=== PATIENT | female | born 1975 | race Caucasian/White ===

== ENCOUNTER → 2021-07-10 15:13 | Outpatient (CLI) | payer OTHER, SELFPAY ==
--- NOTE | ~2021-07-10 | US_ITS ---
EXAMINATION: US transvaginal DATE: 07/10/2021 15:34 INDICATION: Pelvic pain Comparison:Ultrasound dated 05/16/2012 TECHNIQUE: Multiple transabdominal and endovaginal sonographic images of the pelvis performed. FINDINGS: The uterus measures 9 x 4.4 x 5.1 cm. The endometrial complex measures 8 mm. The right ovary measures 2 x 2 x 1.5 cm and the left ovary measures 3.4 x 2.3 x 2.8 cm. There are sm all follicles in each ovary. Normal doppler signal in both ovaries. There is no free fluid in the pelvis. There are no abnormal masses seen on either side. IMPRESSION: 1. Unremarkable pelvic ultrasound. Reviewed, dictated and finalized at location A.
== END ==
PROVIDERS: Visit Provider Nurse Practitioner
DX: R10.2 Pelvic and perineal pain (principal)
CPT/HCPCS: 76830

== ENCOUNTER 2022-04-13 01:59 | Day surgery (SDC) | payer OTHER, SELFPAY ==
[2022-04-07 15:27] VITALS: BMI 34.6
--- NOTE | 2022-04-07 15:27 | PC.NURSE ---
Report to the Outpatient Waiting Room, entrance under the green pavilion located off [facility], at time _0800_ on date _[id number]_. OR Time: _1000_. - You and your visitor will be asked a series of questions to screen for COVID 19 for your protection. - Only one visitor is allowed at this time. - The patient visitor is requested to leave or wait in car when not with patient. - A mask is required within the hospital. Patients may have clear liquids (water, carbonated beverages, clear teas, apple juice) until 3 hours prior to surgery with a maximum of 20 ounces. - No food from midnight until time of surgery Take the following medications with a SIP of water the morning of surgery: ____Levothyroxine Medications to discontinue per physician Multivitamin Date to take last paxh___[id number] Please no make-up, nail congolese, hairspray, perfume, deodorant, or body powder the day of surgery. No jewelry (including any body piercings) or valuables the day of surgery, leave them at home. Please take a shower or bath the night before, or the morning of, surgery with an antibacterial soap. Wear comfortable, loose fitting clothing. - Jewelry must be removed prior to entering the operating room. Rings and piercings that are not removed may be cut off. - The hospital will not accept responsibility for valuables. - Please leave all valuables, including medications, at home the day of surgery. If you are going home after surgery, a licensed star route mail driver must drive you home. - NO public transportation without another adult. - We recommend that an adult stay with you for 24 hours following discharge. - We also recommend that you do not drive, make important decision, drink alcoholic beverages, or take any drugs that were not prescribed by your health care provider for at least 24 hours after your discharge time. Follow any additional instructions given to you from your surgeon. If you or anyone in your household have experienced Covid symptoms in the past week, please notify your surgeon or the nurse liaison at the phone number below for possible testing. Telephone instructions given to _Patient and asked if any additional questions and then verbalized understanding. Patient advised to call surgeon office or pre surgery nurse liaison [phone] if any additional questions.
[2022-04-13] VITALS (8 sets, daily range): BP systolic 95–139; BP diastolic 59–97; PULSE 58–100; RESP 12–18; TEMP 36.8–37; O2SAT 95–100; BMI 35.5
--- NOTE | 2022-04-13 07:29 | WPDHPUPDATE1 ---
History and Physical Update Update Date/Time: 04/13/22 07:29 History and Physical has been reviewed, including an updated exam of the patient. There are NO changes in the patient's condition. Risks, benefits, and alternatives have been discussed and questions answered. Patient agrees to proceed with procedure.
--- NOTE | 2022-04-13 07:29 | PM.IMHP ---
H&P: HPI History of Present Illness Date/Time: 04/13/22 07:29 Chief Complaint: BRCA2 positive Narrative: Patient is a 46-year-old 1 para 1 with BRCA 2 positive. Per Oncology they recommend to proceed with bilateral salpingo-oophorectomy due to high risk breast and ovarian cancer the procedure was discussed with the patient in detail. Risks of infection, bleeding, injury to internal organs (especially bowel, bladder, ureters), DVT, and general anesthesia were reviewed. Postop expectations were discussed. Patient voices understanding and agrees to proceed. Review of Systems Review of Systems: not repeated day of surgery; patient states no changes in status [facility] Past Medical History Medical History (Updated 04/13/22 @ 07:35 by Nu Dykes MD) Family history of Wellington syndrome Hypothyroidism Vitamin D deficiency Surgical History Surgical History (Updated 04/13/22 @ 07:34 by Nu Dykes MD) H/O breast biopsy Bilateral 2020 benign H/O tubal ligation Essure History of History of hysteroscopy 2016 benign Family History Family History Mother Family history of thyroid disease Father Family history of alcoholism Social History Social History Smoking status: Never smoker Second hand tobacco smoke exposure: No Alcohol intake: never Living arrangements: with family Spiritual care concerns: No Meds Home Medications and Allergies Home Medications Medication Instructions Recorded Confirmed Type ergocalciferol (vitamin D2) 1,250 1,250 mcg PO .q3w 12/27/20 History mcg (50,000 unit) capsule (Vitamin D2) levothyroxine 50 mcg tablet 50 mcg PO DAILY #90 tabs 07/29/21 04/07/22 Rx cetirizine 10 mg tablet (Zyrtec) 10 mg PO DAILY 04/07/22 04/07/22 History multivitamin 1 tablet PO DAILY 04/07/22 04/07/22 History Allergies Allergy/AdvReac Type Severity Reaction Status Date / Time Sulfa (Sulfonamide Allergy Unknown Unknown Verified 04/07/22 15:18 Antibiotics) Exam Const: General: healthy appearing and alert Orientation/consciousness: patient oriented x3 Resp: Effort & Inspection: normal respiratory effort Auscultation: clear to auscultation bilaterally Cardio: Rate: regular rate Rhythm: regular rhythm GI: GI Palp: Yes Soft to palpation, No Tenderness to palpation present (GI) and No Palpable mass present : External Female Exam: normal external appearance Speculum Exam - Vagina: normal appearance of the vagina and normal vaginal discharge Speculum Exam - Cervix: normal appearance of the cervix Bimanual exam- vagina & uterus: uterine size normal and consistency normal Bimanual Exam- Adnexa, other: normal adnexae and No adnexal tenderness Neuro: General: patient oriented x3 Assessment and Plan Assessment and plan (1) BRCA2 gene mutation positive: Code(s): Z15.01 - Genetic susceptibility to malignant neoplasm of breast; Z15.09 - Genetic susceptibility to other malignant neoplasm Status: Acute Assessment and Plan: Plan to proceed with laparoscopic bilateral salpingo-oophorectomy
--- NOTE | 2022-04-13 08:14 | P.PNAN_ITS ---
Anes - Initial Pre Proc Eval Procedure: Operation Date: 04/13/22 10:00 Proposed Procedures p Laparoscopic Bilateral Salpingo-Oophorectomy - Nu Dykes MD Date/Time: 04/13/22 08:14 Surgeon: Nu Dykes MD Pre Op Diagnosis: BRCA2 Positive Patient Data Age: 46 Gender: F Height: 1.6 m Weight: 91 kg Last Vital Signs Temp 36.8 C 04/13/22 08:00 Pulse 92 04/13/22 08:00 Resp 18 04/13/22 08:00 BP 139/82 04/13/22 08:00 Pulse Ox 100 04/13/22 08:00 O2 Del Method Room Air 04/13/22 08:00 Allergies Allergy/AdvReac Type Severity Reaction Status Date / Time Sulfa (Sulfonamide Allergy Unknown Unknown Verified 04/13/22 07:49 Antibiotics) Home Medications Medication Instructions Recorded Confirmed Type ergocalciferol (vitamin D2) 1,250 1,250 mcg PO .q3w 12/27/20 History mcg (50,000 unit) capsule (Vitamin D2) levothyroxine 50 mcg tablet 50 mcg PO DAILY #90 tabs 07/29/21 04/13/22 Rx cetirizine 10 mg tablet (Zyrtec) 10 mg PO DAILY 04/07/22 04/13/22 History multivitamin 1 tablet PO DAILY 04/07/22 04/13/22 History Patient hx anesthesia problems: none Family hx anesthesia problems: none Results Review: All pre-operative results and documents have been reviewed as part of the pre- operative evaluation. [facility] Past Medical History Medical History (Updated 04/13/22 @ 07:35 by Nu Dykes MD) Family history of Wellington syndrome Hypothyroidism Vitamin D deficiency Surgical History Surgical History H/O breast biopsy Bilateral 2020 benign H/O tubal ligation Essure History of History of hysteroscopy 2016 benign Family History Family History Mother Family history of thyroid disease Father Family history of alcoholism Social History Social History Smoking status: Never smoker Second hand tobacco smoke exposure: No Alcohol intake: never Living arrangements: with family Spiritual care concerns: No Anes - Eval Final PreProcedure Day of Procedure 04/13/22 08:14 Patient weight: obese Heart: regular rate and rhythm Lungs: clear to auscultation Airway: Mallampati scale class II Neurological: alert and oriented Last oral intake: >/= 8 hours ASA classification: II Emergent: no Anesthetic plan: proceed Anesthesia type and monitoring: general ETT and standard monitoring Results Review: All pre-operative results and documents have been reviewed as part of the pre- operative evaluation. Informed Consent: The patient's anesthetic plan and its attendant risks and benefits were discussed with the patient/family/POA. Questions were solicited and answers provided to the satisfaction of the patient/family/POA.
[2022-04-13] MEDS: LACTATED RINGERS 1,000 ML 30 ML IV CONT ×2 (08:21→12:12)
[2022-04-13] MEDS: ACETAMINOPHEN 500 MG TABLET 1000 MG PO (08:21)
[2022-04-13] MEDS: KETOROLAC 15 MG/ML VIAL (*BKC) IV PUSH (08:21)
--- NOTE | 2022-04-13 11:59 | W.PM.PROC2 ---
Procedure Note - Detailed Date of Procedure 04/13/22 Pre-op Diagnosis BRCA2 Positive Post-op Diagnosis Same Procedure Performed Laparoscopic bilateral salpingo oophorectomy Surgeon Nu Dykes MD Anesthesia General Findings Normal-appearing ovaries. Tubes with bilateral cysts. Normal-appearing uterus. Description of Procedure The patient was taken to the operating room and placed under general anesthesia in the dorsal lithotomy position. She was prepped and draped in the usual sterile fashion. Bladder was drained with a red rubber catheter. [place] speculum was placed in the vagina and the cervix is grasped on the anterior lip with a tenaculum. The uterus is attempted to be sounded and internal os was stenotic. The acorn manipulator was placed. Attention then turned to the abdomen where a vertical skin incision was made at the base of the umbilicus. The abdomen is tented with towel clamps and the Veress needle placed. Opening patient pressure was 5mmHg and water drop test is normal. The pneumoperitoneum was obtained to a patient pressure of 15mmHg. The Veress needle was then removed and the 5mm Optiview placed under laparoscopic guidance. The intra-abdominal placement was confirmed with the laparoscope. The patient is placed in Trendelenburg and a 5mm skin incision made in the midline 2cm above the symphysis pubis. 5mm trocars placed under direct visualization. Blunt probe was used to bring the tubes and ovaries into the visual field. Both are free of adhesions. An 11mm port is placed under direct visualization in the left lower quadrant. Right tube was grasped with a grasper and the LigaSure used to cauterize and cut the mesosalpinx. Two 2 prior Essure placement the proximal 2cm of the tube are left in place and the tube was crossclamped cauterized and cut with the LigaSure. Tube was placed anteriorly for future placement in the endobag. The right ovary is grasped at the piece and the LigaSure used to cauterize and cut the infundibulopelvic ligament. The ovaries again placed anteriorly. Attention was turned to the left side. The left tube was grasped and the LigaSure used to cauterize and cut the mesosalpinx and again approximately 2cm of the proximal tube were left in place due to the Essure. The tube was cross clamped, cauterized, and cut. Again the tube was placed anteriorly. The left ovary is grasped and the infundibulopelvic ligament cauterized and cut using the LigaSure. The LigaSure device is then removed and the endobag placed through the trocar. And the individual tubes and ovaries were placed within the bag. The bag is brought up through the incision and the port is removed. Both tubal and ovarian sites are again visualized and noted to be hemostatic. The 11mm port skin incision is extended and the fascia was extended to allow removal of the bag. The [facility] so used to grab the fascia anterior and posteriorly. The central port are both removed and the pneumoperitoneum reduced. The fascia was closed using a UR 6 needle of 0 Vicryl in interrupted fashion. Palpation reveals the fascial to be closed. Skin incisions are closed using 4-0 Vicryl in a subcuticular fashion with Dermaflex over each incision. Vaginal instruments are removed. Patient is awakened from anesthesia and taken to recovery in stable condition. Estimated Blood Loss 5 Drains No Packing No Pathology Yes (Bilateral tubes and ovaries) Complications No immediate complications Condition Stable Disposition PACU
[2022-04-13] MEDS: ONDANSETRON INJ 4 MG/2 ML VIAL IV PUSH (12:58)
== END 2022-04-13 13:53 | disposition home or self-care (01) ==
PROVIDERS: PCP Family Medicine; Visit Provider Obstetrics & Gynecology Gynecology
PROC: (CPT 49320; principal; 2022-04-13 10:00)
DX: Z40.02 Encounter for prophylactic removal of ovary(s) (principal); Z15.09 Genetic susceptibility to other malignant neoplasm; Z15.01 Genetic susceptibility to malignant neoplasm of breast; N83.8 Other noninflammatory disorders of ovary, fallopian tube and broad ligament; E03.9 Hypothyroidism, unspecified; E55.9 Vitamin D deficiency, unspecified; E66.9 Obesity, unspecified; Z68.35 Body mass index [BMI] 35.0-35.9, adult
CPT/HCPCS: 58661; 88305; A9270; J0330; J1100; J1170; J1885; J2250; J2405; J2704; J2710; J3010; J7030; J7120

== ENCOUNTER 2024-04-25 07:42 | Day surgery (SDC) | payer OTHER, SELFPAY ==
[2024-04-18 06:04] VITALS: BMI 33.1
[2024-04-18 11:40] VITALS: BMI 32.8
--- NOTE | 2024-04-25 07:14 | PM.HPGS ---
History of Present Illness History of Present Illness Consent: Risks, benefits, and alternatives have been discussed and questions answered. Patient agrees to proceed with procedure. Chief complaint: Neoplasm screening Narrative: Jane Hong is a 48 year old female who is referred for colon cancer screening. there is a family history of Wellington syndrome. Review of Systems Review of Systems: All systems reviewed & are unremarkable except as noted in HPI and below PMFSH Past Medical History Medical History Family history of Wellington syndrome Hypothyroidism Vitamin D deficiency Surgical History Surgical History H/O bilateral salpingo-oophorectomy H/O breast biopsy Bilateral 2020 benign H/O tubal ligation Essure History of History of hysteroscopy 2016 benign Family History Family History Mother Family history of thyroid disease Father Family history of alcoholism Social History Social History Smoking status: Never smoker Second hand tobacco smoke exposure: No Alcohol intake: current Alcohol use details: 1 drink monthly Substance use: never Substance use type: does not use Living arrangements: with family Occupation/Education: occupation Gender identity (if verbalized by the patient): Female Spiritual care concerns: No Agree to blood products: Yes Meds Home Medications and Allergies Home Medications Medication Instructions Recorded Confirmed Type ergocalciferol (vitamin D2) 1,250 1,250 mcg PO .q3w 12/27/20 04/18/24 History mcg (50,000 unit) capsule (Vitamin D2) cetirizine 10 mg tablet (Zyrtec) 10 mg PO DAILY PRN Allergy Symptoms 04/07/22 04/25/24 History multivitamin 1 tablet PO DAILY 04/07/22 04/25/24 History spironolactone 50 mg tablet 150 mg PO DAILY #1 tablet 08/13/23 04/25/24 Rx levothyroxine 50 mcg tablet 50 mcg PO DAILY #90 tabs 04/24/24 Rx Allergies Allergy/AdvReac Type Severity Reaction Status Date / Time Sulfa (Sulfonamide Allergy Unknown Unknown Verified 04/25/24 08:19 Antibiotics) Assessment and Plan Assessment and plan (1) Colon cancer screening: Code(s): Z12.11 - Encounter for screening for malignant neoplasm of colon Status: Acute Assessment and Plan: Colonoscopy with possible biopsy or polypectomy or cautery or injection of substances.
[2024-04-25 08:24] VITALS: BP 132/98; PULSE 96; RESP 20; TEMP 36.5; O2SAT 100; BMI 33.0
[2024-04-25] MEDS: LACTATED RINGERS 1,000 ML 150 ML IV CONT (08:35)
--- NOTE | 2024-04-25 08:46 | P.PNAN_ITS ---
Anes - Initial Pre Proc Eval Procedure: Operation Date: 04/25/24 09:30 Proposed Procedures p Screening Colonoscopy - Jaime Davies MD Date/Time: 04/25/24 08:46 Surgeon: Jaime Davies MD Pre Op Diagnosis: Neoplasm screening Patient Data Age: 48 Gender: F Height: 1.6 m Weight: 84.6 kg Last Vital Signs Temp 36.5 C 04/25/24 08:24 Pulse 96 04/25/24 08:24 Resp 20 04/25/24 08:24 BP 132/98 H 04/25/24 08:24 Pulse Ox 100 04/25/24 08:24 O2 Del Method Room Air 04/25/24 08:24 Allergies Allergy/AdvReac Type Severity Reaction Status Date / Time Sulfa (Sulfonamide Allergy Unknown Unknown Verified 04/25/24 08:19 Antibiotics) Home Medications Medication Instructions Recorded Confirmed Type ergocalciferol (vitamin D2) 1,250 1,250 mcg PO .q3w 12/27/20 04/18/24 History mcg (50,000 unit) capsule (Vitamin D2) cetirizine 10 mg tablet (Zyrtec) 10 mg PO DAILY PRN Allergy Symptoms 04/07/22 04/25/24 History multivitamin 1 tablet PO DAILY 04/07/22 04/25/24 History spironolactone 50 mg tablet 150 mg PO DAILY #1 tablet 08/13/23 04/25/24 Rx levothyroxine 50 mcg tablet 50 mcg PO DAILY #90 tabs 04/24/24 Rx Patient hx anesthesia problems: none Family hx anesthesia problems: none Results Review: All pre-operative results and documents have been reviewed as part of the pre- operative evaluation. [facility] Past Medical History Medical History Family history of Wellington syndrome Hypothyroidism Vitamin D deficiency Surgical History Surgical History H/O bilateral salpingo-oophorectomy H/O breast biopsy Bilateral 2020 benign H/O tubal ligation Essure History of History of hysteroscopy 2016 benign Family History Family History Mother Family history of thyroid disease Father Family history of alcoholism Social History Social History Smoking status: Never smoker Second hand tobacco smoke exposure: No Alcohol intake: current Alcohol use details: 1 drink monthly Substance use: never Substance use type: does not use Living arrangements: with family Occupation/Education: occupation Gender identity (if verbalized by the patient): Female Spiritual care concerns: No Agree to blood products: Yes Anes - Eval Final PreProcedure Day of Procedure 04/25/24 08:46 Patient weight: obese Heart: regular rate and rhythm Lungs: clear to auscultation Airway: Mallampati scale class II Neurological: alert and oriented Last oral intake: >/= 8 hours ASA classification: II Emergent: no Anesthetic plan: proceed Anesthesia type and monitoring: general GIVS and standard monitoring Results Review: All pre-operative results and documents have been reviewed as part of the pre- operative evaluation. Informed Consent: The patient's anesthetic plan and its attendant risks and benefits were discussed with the patient/family/POA. Questions were solicited and answers provided to the satisfaction of the patient/family/POA.
[2024-04-25 09:32] VITALS: BP 104/70; PULSE 71; RESP 18; O2SAT 100
[2024-04-25 09:42] VITALS: BP 119/76; PULSE 73; RESP 20; O2SAT 100
--- NOTE | 2024-04-25 09:43 | WPDANESPN ---
Anes - Prog Note Post-Op Date/Time: 04/25/24 09:43 Cardiovascular status: normal Respiratory status: normal Airway patency: baseline Mental status: baseline Post-Op hydration status: normal Vital Signs: Last Vital Signs Temp 36.5 C 04/25/24 08:24 Pulse 96 04/25/24 08:24 Resp 20 04/25/24 08:24 BP 132/98 H 04/25/24 08:24 Pulse Ox 100 04/25/24 08:24 O2 Del Method Room Air 04/25/24 08:24 Pain Score (VAS): 0/10 Patient Feedback: Patient satisfied with anesthetic care.
[2024-04-25 09:52] VITALS: BP 119/76; PULSE 76; RESP 20; O2SAT 100
== END 2024-04-25 10:10 | disposition home or self-care (01) ==
PROVIDERS: PCP Family Medicine; Visit Provider Internal Medicine Gastroenterology
PROC: 0DJD8ZZ Inspection of Lower Intestinal Tract, Via Natural or Artificial Opening Endoscopic (ICD-10-PCS; CPT 45378; principal; 2024-04-25 09:30)
DX: Z12.11 Encounter for screening for malignant neoplasm of colon (principal)
CPT/HCPCS: 45378

== ENCOUNTER 2024-11-28 09:37 | Outpatient (CLI) | payer OTHER, SELFPAY ==
--- NOTE | 2024-11-28 10:01 | ECHO_ITS ---
Patient Info Name: Jane Hong Age: 49 years : 1975 Gender: Female Ht: 63 in Wt: 200 lbs BSA: 2.05 m2 HR: 94 bpm BP: 128 / 74 mmHg Heart Rhythm: Sinus Rhythm Technical Quality: Good Exam Date: 11/28/2024 10:07 AM Exam Location: Echo Lab Patient Status: Outpatient Admit Date: 11/28/2024 Staff Ordering Physician: Juana Baum PA-C Stiff Leg Operator: Liya Ferrara RDCS Attending Provider: Juana Baum PA-C Referring Physician: Bautista SHARP; Exam Type: CA echo doppler color flow Study Info Indications - Unspecified cardiac murmuir Complete two-dimensional, color flow and Doppler transthoracic echocardiogram is performed. Summary 1. Complete two-dimensional, color flow and Doppler transthoracic echocardiogram is performed. 2. Left ventricular chamber dimension is normal. 3. Left ventricular systolic function is normal, estimated at 65-70%. 4. The left ventricular diastolic function is normal. 5. E/e' 9 is minimally elevated. 6. Left atrial chamber dimension is mildly enlarged. 7. There is moderate aortic valve sclerosis. 8. There is trace aortic valve regurgitation. 9. There is mild tricuspid valve regurgitation. 10. Mild pulmonary hypertension, estimated pulmonary arterial systolic pressure is 47 mmHg. 11. The prox ascending aorta size is borderline dilated at 4.1 cm. 12. Dilated inferior vena cava with >50% collapse upon inspiration consistent with elevated right atrial pressure, 10 mmHg. Left Ventricle E/e' 9 is minimally elevated. Left ventricular chamber dimension is normal. Left ventricular systolic function is normal, estimated at 65-70%. The left ventricular diastolic function is normal. Right Ventricle Right ventricular systolic function is normal and with normal TAPSE 2.1 cm. Right ventricular chamber dimension is normal. Left Atria Left atrial chamber dimension is mildly enlarged. Right Atria Right atrial chamber dimension is normal. Aortic Valve The aortic valve is probable trileaflet. There is moderate aortic valve sclerosis. There is no aortic valve stenosis. There is trace aortic valve regurgitation. Pulmonic Valve There is no pulmonic regurgitation. Mitral Valve There is no mitral valve stenosis. There is no mitral valve regurgitation. Tricuspid Valve There is mild tricuspid valve regurgitation. Mild pulmonary hypertension, estimated pulmonary arterial systolic pressure is 47 mmHg. Pericardium/Pleural There is no pericardial effusion. Inferior Vena Cava Dilated inferior vena cava with >50% collapse upon inspiration consistent with elevated right atrial pressure, 10 mmHg. Aorta The prox ascending aorta size is borderline dilated at 4.1 cm. The aortic root size at the sinus of Valsalva is normal. Left Ventricular Outflow Tract Name Value Normal LVOT 2D LVOT Diameter 1.9 cm LVOT Doppler LVOT Peak Gradient 7 mmHg LVOT Mean Gradient 4 mmHg LVOT VTI 30 cm LVOT VTI/AV VTI Ratio 0.4 LVOT Stroke Volume 84 ml LVOT CO 6.2 l/min LVOT CI 3.0 l/min/m2 Pulmonic Valve Name Value Normal PV Doppler PV Peak Gradient 4 mmHg Mitral Valve Name Value Normal MV Doppler MV Peak Gradient 6 mmHg MV Mean Gradient 1 mmHg MV Decel [place] 329 cm/s2 MV PHT 75 ms MV Area (PHT) 2.9 cm2 4.0-5.0 MV Area (Cont Eq VTI) 2.6 cm2 MV Regurgitation Doppler MR Peak Gradient 55 mmHg MV Diastolic Function MV E Peak Velocity 85 cm/s MV A Peak Velocity 66 cm/s MV E/A 1.3 MV Decel Time 258 ms MV Annular TDI MV E/e' (Septal) 10.9 <=8.0 MV E/e' (Lateral) 8.6 <=8.0 MV E/e' (Average) 9.7 Tricuspid Valve Name Value Normal TV Regurgitation Doppler TR Peak Velocity 303 cm/s TR Peak Gradient 37 mmHg Estimated PAP/RSVP RA Pressure 10 mmHg <=5 PA Systolic Pressure 47 mmHg <36 RV Systolic Pressure 47 mmHg <36 Aortic Valve Name Value Normal AV Doppler AV Peak Velocity 340 cm/s AV Peak Gradient 43 mmHg AV Mean Gradient 27 mmHg AV VTI 79 cm AV Area (Cont Eq VTI) 1.1 cm2 >=3.0 AV Area (Cont Eq Sanya) 1.3 cm2 AV Regurgitation 2D LVOT Area 2.8 cm2 Ventricles Name Value Normal LV Dimensions 2D/MM IVS Diastolic Thickness (2D) 0.7 cm 0.6-1.0 LVID Diastole (2D) 4.9 cm 3.8-5.2 LVIW Diastolic Thickness (2D) 0.7 cm 0.6-0.9 LVID Systole (2D) 3.3 cm 2.2-3.5 LVOT Diameter 1.9 cm LV Mass (2D Cubed) 115.21 g 67.00-162.00 LV Mass Index (2D Cubed) 56 g/m2 43-95 Relative Wall Thickness (2D) 0.30 LV Fractional Shortening/Ejection Fraction 2D/MM LV Fractional Shortening (2D) 31 % 27-45 LV EF (2D Teicholz) 59 % 54-74 LV Diastolic Volume (4C MOD) 108 ml LV EF (4C MOD) 70 % LV Diastolic Length (4C) 8.3 cm LV Systolic Length (4C) 6.5 cm LV Stroke Volume (4C MOD) 75 ml Atria Name Value Normal LA Dimensions LA Volume (4C A-L) 38 ml RA Dimensions RA Area (4C) 13.0 cm2 <=18.0 Report Signatures
--- OUTSIDE RECORDS SUMMARY | 2024-11-28 10:28 | XMS_ITS | Clinical Summary ---
Author Organization [facility] Address [address] [place] [phone] Phone Care Team Providers Care Health Education Teacher Name Role Phone Unavailable Primary Care Provider Unavailabl e Social History Tobacco Use Types Packs/Day Years Used Date Smoking Tobacco: Never Assessed Comments Unknown Sex and Gender Information Value Date Recorded Sex Assigned at Not on file Legal Sex Female 6:11 AM BARMAN Gender Identity Not on file Sexual Orientation Not on file Plan of Treatment Health Maintenance Due Date Last Done Comments DTAP/TDAP/TD VACCINES (1 - Tdap) 1996 HEPATITIS B VACCINES (1 of 3 - 19+ 3-dose series) 05/1996 CERVICAL CANCER SCREENING 2007 BREAST CANCER SCREENING 2017 COLORECTAL SCREENING 2022 Colorectal Cancer Screening 2022 FIT-DNA Q 3 years 2022 FIT/FOBT Q 1 year 2022 Flex Sig/CT Colonography Q 5 years 2022 INFLUENZA VACCINE (#1) [address] [place] [address] [address] [phone]
--- OUTSIDE RECORDS SUMMARY | 2024-11-28 10:28 | XMS_ITS | Clinical Summary ---
Author Organization [facility] Address [address] [place] [id number] Care Team Providers Care Supervisor Stone Name Role Phone Sheryl Cramer MD Primary Care Provider [phone] Nu Dykes MD Unavailable [phone] Allergies Active Allergy Reactions Criticality Noted Date Comments Sulfa (Sulfonamide Antibiotics) Joint pain Low 06/18 Medications multivitamin with minerals tablet Take by mouth Active ergocalciferol (VITAMIN D) 50,000 unit capsule 10/24/2019 Active ferrous sulfate 325 mg (65 mg of elemental iron) tablet Take 1 tablet (325 mg total) by mouth daily Active Synthroid 50 mcg tablet 10/27/2019 Active calcium carbonate (OS-HENRY) 1,177 mg tablet,chewable 1 tablet (1,177 mg total) Active Amzeeq 4 % foam 08/06/2023 Act zeus spironolactone (ALDACTONE) 100 mg tablet 04/23/2023 Active tazarotene 0.1 % foam 03/18/2023 Active Active Problems Problem Noted Date Diagnosed Date Breast cancer screening, high risk patient 12/24 Mass of breast 01/12/2018 Abnormal findings on diagnostic imaging of breas t 06/26/2014 BRCA2 positive Encounters Date Type Department Care Team Description 11/21/2024 1:30 PM PACKAGING DESIGN ENGINEER Office Visit [facility] Surgery [address] [place] [address] Bel Sanchez NP BRCA2 positive (Primary Dx); At high risk for breast cancer; Encounter for screening mammogram for malignant neoplasm of breast 11/21/2024 11:57 AM PACKAGING DESIGN ENGINEER - 11/21/2024 11:59 PM PACKAGING DESIGN ENGINEER Hospital Encounter [facility] Imaging and Radiology [address] [place] [address] Breast cancer screening, high risk patient Discharge Disposition: Discharge to home or self care from Last 3 Months Immunizations Name Administration Dates Next Due Pfizer SARS-CoV-2 Monovalent Vaccination (12+ Yrs) PURPLE 12/24/2020,12/03/2020 Surgical History Surgery Date Site/Laterality Comments BREAST BIOPSY 01/05/2020 Left BREAST EXCISIONAL BIOPSY 01/05/2020 Right OOPHERECTOMY 04/13/2022 Medical History Medical History Date Comments BRCA2 positive Family History Medical History Relation Name Comments Ovarian cancer Maternal Grandmother Uterine cancer Maternal Grandmother Ovarian cancer Mother's Sister Endometrial cancer Neg Hx Thyroid cancer Neg Hx Relation Name Status Comments Maternal Grandmother Mother's Sister Alive Social History Tobacco Use Types Packs/Day Years Used Date Smoking Tobacco: Never Tobacco Cessation:Counseling Given: Not Answered Comments No Sex and Gender Information Value Date Recorded Sex Assigned at Not on file Legal Sex Female 7:27 AM PACKAGING DESIGN ENGINEER Gender Identity Not on file Sexual Orientation Not on file Obstetrics History Para Term AB IAB SAB Ectopic Multiple Livin g Live Births 1 1 1 1 1 Date Outcome GA Total Labor Labor/2nd/3rd Weight Sex Type Anes PTL [place] A1 A5 Name Clin 2012 Term 39w0 d M CS-Un spec Living Last Filed Vital Signs Vital Sign Reading Time Taken Comments Blood Pressure 130/85 11/21/2024 1:28 PM PACKAGING DESIGN ENGINEER Pulse 108 11/21/2024 1:28 PM PACKAGING DESIGN ENGINEER Temperature 36.6 C (97.8 F) 11/21/2024 1:28 PM PACKAGING DESIGN ENGINEER Respiratory Rate 18 11/21/2024 1:28 PM PACKAGING DESIGN ENGINEER Oxygen Saturation 97% 11/21/2024 1:28 PM PACKAGING DESIGN ENGINEER Inhaled Oxygen Concentration - - Weight 90.2 kg (198 lb 12.8 oz) 11/21/2024 1:26 PM PACKAGING DESIGN ENGINEER Height 160 cm (5' 3 ) 05/17/2023 7:34 AM CDT Body Mass Index 35.22 05/17/2023 7:34 AM CDT Plan of Treatment Health Maintenance Due Date Last Done Comments Cervical Cancer Screening 1977 Colon Cancer Screening-Colonoscopy 1977 Depression Screening 1977 Hepatitis C Screening 1977 DTaP/Tdap/Td Vaccine (1 - Tdap) 1988 Hepatitis B Screening 1995 Regular Well Visit/Exam 18-64 1995 Covid-19 Vaccine (3 - 2023- season) 2024 12/24/2020, 12/03/2020 Influenza Vaccine (#1) 2024 Breast Cancer Screening-Mammogram 11/21/2025 11/21/2024, 11/16/2023, 11/17/2022, Additional history exists Pneumococcal vaccine <65 Aged Out No longer eligible based on patient's age to complete this topic Procedures Procedure Name Priority Date/Time Associated Diagnosis Comments SCREENING MAMMOGRAM BILATERAL W MANUEL Schedule Routine, Read Routine (OP Routine) 11/21/2024 12:20 PM PACKAGING DESIGN ENGINEER Breast cancer screening, high risk patient from Last 3 Months Results * Screening Mammogram Bilateral W Manuel (11/21/2024 12:20 PM PACKAGING DESIGN ENGINEER) Anatomical Region Laterality Modality Breast Bilateral Mammography 11/21/2024 12:4 5 PM PACKAGING DESIGN ENGINEER Impressions 11/21/2024 12:45 PM PACKAGING DESIGN ENGINEER No evidence of malignancy in either breast. FINAL ASSESSMENT: BI-RADS Category 1: Negative. RECOMMENDATION: Recommend return for annual screening mammogram in 12 months. Electronically signed by: AMBER MATIAS MD Narrative 11/21/2024 12:45 PM PACKAGING DESIGN ENGINEER EXAMINATION: BILATERAL SCREENING MAMMOGRAM COMPARISON: All prior mammograms dating back to 2019. TECHNIQUE: Full-field 2D and digital breast tomosynthesis (DBT) images were obtained. CAD was utilized. BREAST PARENCHYMAL COMPOSITION: The breasts are heterogenously dense, which may obscure small masses. FINDINGS: There is no suspicious mass, calcification, or distortion in either breast. Casi Soto NP IMG MAMMO PROCEDURES Final Result from Last [address] CHOICE PLUS [facility] HMO/PPO Address: [address] [place] [address] CHOICE [facility]US [facility] HMO/PPO Address: [address] [place] [address] CHO[facility] HMO/PPO Address: [id number] [place], [place] [id number] [facility] CHOICE PLUS [facility] HMO/PPO Address: [address] CHO[employer] [facility]US [facility] HMO/PPO Address: [place] [address] Care Teams Supervisor Stone Relationship Specialty Start Date End Date Sheryl Cramer MD PCP - General 01/24/18 Nu Dykes MD [address] [address] Referring Physician Gynecology 11/16/23
--- OUTSIDE RECORDS SUMMARY | 2024-11-28 10:28 | XMS_ITS | Referral Summary ---
Author Organization [facility] Address [address] [facility] [place] [address] Care Team Providers Care House Coordinator Name Role Phone Sheryl Cramer MD Primary Care Provider [phone] Source Comments [facility],non-owned Affiliates and Associated Physician Practices is amultiple site organization consisting of ambulatory clinics and hospital sitesin [place], [place], [place] and [place]. This disclosure is being madepursuant to the Care Everywhere program and may not contain all information available regarding this patient. Last updated 18.[facility] Allergies Active Allergy Reactions Criticality Noted Date Comments Sulfa Drugs 09/27/2016 Medications * Be aware that medications may not be up to date on this document. Alwaysverify current medications with the patient. Medication Sig Dispensed Refills Start Date End Date Status LEVOTHYROXINE SODIUM PO A ctive Multiple Vitamins-Minerals (MULTIVITAMIN & MINERAL PO) Active VITAMIN D, ERGOCALCIFEROL, PO Active ferrous sulfate 325 (65 FE) MG tablet Take 325 mg by mouth once daily Active Active Problems No known active problems Social History Tobacco Use Types Packs/Day Years Used Date Smoking Tobacco: Never Smokeless Tobacco: Never Sex and Gender Information Value Date Recorded Sex Assigned at Not on file Gender Identity Not on file Sexual Orientation Not on file Last Filed Vital Signs Vital Sign Reading Time Taken Comments Blood Pressure 126/78 12/15/2019 11:37 AM REWINDER Pulse 91 12/15/2019 11:37 AM REWINDER Temperature 37 C (98.6 F) 12/15/2019 11:37 AM REWINDER Respiratory Rate 16 12/15/2019 11:37 AM REWINDER Oxygen Saturation 99% 12/15/2019 11:37 AM REWINDER Inhaled Oxygen Concentration - - Weight 80.3 kg (177 lb) 12/15/2019 11:37 AM REWINDER Height 160 cm (5' 3 ) 12/15/2019 11:37 AM REWINDER Body Mass Index 31.35 12/15/2019 11:37 AM REWINDER Plan of Treatment Not on file Care Teams House Coordinator Relationship Specialty Start Date End Date Sheryl Cramer MD [address] [place] [address] PCP - General 04/21/22
--- OUTSIDE RECORDS SUMMARY | 2024-11-28 10:28 | XMS_ITS | Referral Summary ---
Author Organization [facility] Address [address] [place] [id number] Care Team Providers Care Door Liner Helper Name Role Phone Sheryl Cramer MD Primary Care Provider [phone] Nu Dykes MD Unavailable [phone] Encounters Date Type Department Care Team Description 11/21/2024 11:57 AM APPLIED PSYCHOLOGY PROFESSOR - 11/21/2024 11:59 PM [facility] Hospital Encounter [facility] Imaging and Radiology [address] [place] [address] Breast cancer screening, high risk patient Discharge Disposition: Discharge to home or self care 11/21/2024 1:30 PM APPLIED PSYCHOLOGY PROFESSOR Office Visit [facility] Surgery [address] [place] [address] Bel Sanchez NP BRCA2 positive (Primary Dx); At high risk for breast cancer; Encounter for screening mammogram for malignant neoplasm of breast from Last 3 Months Allergies Active Allergy Reactions Criticality Noted Date [...] 01/12/2018 Abnormal findings on diagnostic imaging of [place] 06/26/2014 BRCA2 positive Immunizations Name Administration Dates Next Due Pfizer SARS-CoV-2 Monovalent Vaccination (12+ Yrs) PURPLE 12/24/2020,12/03/2020 Social History Tobacco Use Types Packs/Day Years Used Date Smoking Tobacco: Never Tobacco Cessation:Counseling Given: Not Answered Comments No Sex and Gender Information Value Date Recorded Sex Assigned at Not on file Legal Sex Female 7:27 AM APPLIED PSYCHOLOGY PROFESSOR Gender Identity Not on file Sexual Orientation Not on file Last Filed Vital Signs Vital Sign Reading Time Taken Comments Blood Pressure 130/85 11/21/2024 1:28 PM APPLIED PSYCHOLOGY PROFESSOR Pulse 108 11/21/2024 1:28 PM APPLIED PSYCHOLOGY PROFESSOR Temperature 36.6 C (97.8 F) 11/21/2024 1:28 PM APPLIED PSYCHOLOGY PROFESSOR Respiratory Rate 18 11/21/2024 1:28 PM APPLIED PSYCHOLOGY PROFESSOR Oxygen Saturation 97% 11/21/2024 1:28 PM APPLIED PSYCHOLOGY PROFESSOR Inhaled Oxygen Concentration - - Weight 90.2 kg (198 lb 12.8 oz) 11/21/2024 1:26 PM APPLIED PSYCHOLOGY PROFESSOR Height 160 cm (5' 3 ) 05/17/2023 7:34 AM CDT Body Mass Index 35.22 05/17/2023 7:34 AM CDT Plan of Treatment Not on file Procedures Procedure Name Priority Date/Time Associated Diagnosis Comments SCREENING MAMMOGRAM BILATERAL W MANUEL Schedule Routine, Read Routine (OP Routine) 11/21/2024 12:20 PM APPLIED PSYCHOLOGY PROFESSOR Breast cancer screening, high risk patient from Last 3 Months Results * Screening Mammogram Bilateral W Manuel (11/21/2024 12:20 PM APPLIED PSYCHOLOGY PROFESSOR) Anatomical Region Laterality Modality Breast Bilateral Mammography 11/21/2024 12:4 5 PM APPLIED PSYCHOLOGY PROFESSOR Impressions 11/21/2024 12:45 PM APPLIED PSYCHOLOGY PROFESSOR No evidence of malignancy in either breast. FINAL ASSESSMENT: BI-RADS Category 1: Negative. RECOMMENDATION: Recommend return for annual screening mammogram in 12 months. Electronically signed by: AMBER MATIAS MD Narrative 11/21/2024 12:45 PM APPLIED PSYCHOLOGY PROFESSOR EXAMINATION: BILATERAL SCREENING MAMMOGRAM COMPARISON: All prior [...] Final Result from Last 3 Months Insurance [facility] H[facility]/PPO Address: [place] [id number] H[facility]/PPO Address: [address] [place] [address] [facility] HMO/PPO Address: [address] [place] [id number] HMO/PPO Address: [address] [facility] HMO/PPO Address: [address] [place] [address] Care Teams Door Liner Helper Relationship Specialty Start Date End Date Sheryl Cramer MD PCP - General 01/24/18 Nu Dykes MD [address] [place] [address] Referring Physician Gynecology 11/16/23
--- OUTSIDE RECORDS SUMMARY | 2024-11-28 10:28 | XMS_ITS | Clinical Summary ---
Author Organization [facility] Address [address] [facility] [place] [address] Care Team Providers Care Bulk Picker Name Role Phone Sheryl Cramer MD Primary Care Provider [phone] Source Comments [facility],non-owned Affiliates and Associated Physician Practices is amultiple site organization consisting of ambulatory clinics and hospital sitesin [place], [place], [place] and [place]. This disclosure is being madepursuant to the Care Everywhere program and may not contain all information available regarding this patient. Last updated 18.[facility] Allergies Active Allergy Reactions Criticality Noted Date [...] Comments Blood Pressure 126/78 12/15/2019 11:37 AM SOCIAL WORK SUPERVISOR Pulse 91 12/15/2019 11:37 AM SOCIAL WORK SUPERVISOR Temperature 37 C (98.6 F) 12/15/2019 11:37 AM SOCIAL WORK SUPERVISOR Respiratory Rate 16 12/15/2019 11:37 AM SOCIAL WORK SUPERVISOR Oxygen Saturation 99% 12/15/2019 11:37 AM SOCIAL WORK SUPERVISOR Inhaled Oxygen Concentration - - Weight 80.3 kg (177 lb) 12/15/2019 11:37 AM SOCIAL WORK SUPERVISOR Height 160 cm (5' 3 ) 12/15/2019 11:37 AM SOCIAL WORK SUPERVISOR Body Mass Index 31.35 12/15/2019 11:37 AM SOCIAL WORK SUPERVISOR Plan of Treatment Health Maintenance Due Date Last Done Comments COLOGUARD (AGES 45-75) - COL ON CA SCREENING 1977 COLON MONITORING 1977 COLONOSCOPY - COLON CA SCREENING 1977 CT COLONOGRAPHY - COLON CA SCREENING 1977 Colorectal Cancer Screening 1977 FIT - COLON CA SCREENING 1977 FLEX SIG - COLON CA SCREENING 1977 LIPID TESTING 1977 MAMMOGRAM 1977 PAP SMEAR 1977 HIV SCREENING 1992 HEPATITIS C SCREENING 09/20/1995 DTAP/TDAP/TD VACCINES (1 - Tdap) 1996 HEPATITIS B VACCINE (1 of 3 - 19+ 3-dose series) 1996 SCREENING FOR DIABETES 05/31/2018 COVID-19 VACCINE ( - 2023-2 5 season) 2024 INFLUENZA VACCINE (#1) 2024 DEPRESSION SCREENING 10/18/2024 ZOSTER VACCINE (1 of 2) 2027 HIB VACCINE Aged Out No longer eligi ble based on patient's age to complete this topic HPV VACCINE Aged Out No longer eligi ble based on patient's age to complete this topic MENINGOCOCCAL (Group B) VACCINE Aged Out No longer eligible based on patient's age to complete this topic MENINGOCOCCAL VACCINE Aged Out No carina eileen eligible based on patient's age to complete this topic PNEUMOCOCCAL VACCINE Aged Out No long er eligible based on patient's age to complete this topic Care Teams Bulk Picker Relationship Specialty Start Date End Date Sheryl Cramer MD [address] [place] [address] PCP - General 04/21/22
--- OUTSIDE RECORDS SUMMARY | 2024-11-28 10:28 | XMS_ITS | Patient Health Summary ---
Author Organization [facility] Address [address] [place] [address] Care Team Providers Care Detail Assembler Name Role Phone Sheryl Cramer MD Primary Care Provider [phone] Note from [facility],non-owned Affiliates and Associated Physician Practices is amultiple site organization consisting of ambulatory clinics and hospital sitesin [place], [place], [place] and [place]. This disclosure is being madepursuant to the Care Everywhere program and may not contain all information available regarding this patient. Last updated 18.[facility] Allergies * Sulfa Drugs Medications * Be aware that medications may not be up to date on this document. Alwaysverify current medications with the patient. * LEVOTHYROXINE SODIUM PO * Multiple Vitamins-Minerals (MULTIVITAMIN & MINERAL PO) * VITAMIN D, ERGOCALCIFEROL, PO * ferrous sulfate 325 (65 FE) MG tablet Take 325 mg by mouth once daily Active Problems No known active problems Social History Tobacco Use Types Packs/Day Years Used Date Smoking Tobacco: Never Smokeless Tobacco: Never Sex and Gender Information Value Date Recorded Sex Assigned at Not on file Gender Identity Not on file Sexual Orientation Not on file Last Filed Vital Signs Vital Sign Reading Time Taken Comments Blood Pressure 126/78 12/15/2019 11:37 AM SPORTS COMMENTATOR Pulse 91 12/15/2019 11:37 AM SPORTS COMMENTATOR Temperature 37 C (98.6 F) 12/15/2019 11:37 AM SPORTS COMMENTATOR Respiratory Rate 16 12/15/2019 11:37 AM SPORTS COMMENTATOR Oxygen Saturation 99% 12/15/2019 11:37 AM SPORTS COMMENTATOR Inhaled Oxygen Concentration - - Weight 80.3 kg (177 lb) 12/15/2019 11:37 AM SPORTS COMMENTATOR Height 160 cm (5' 3 ) 12/15/2019 11:37 AM SPORTS COMMENTATOR Body Mass Index 31.35 12/15/2019 11:37 AM SPORTS COMMENTATOR Procedures * INFLUENZA A+B - POINT OF CARE (AMB)(Performed 12/15/2019) Performed for Acute non-recurrent maxillary sinusitis * STREP A SCREEN - POINT OF CARE (AMB) STL(Performed 12/15/2019) Performed for Acute non-recurrent maxillary sinusitis * STREP A SCREEN - POINT OF CARE (AMB) STL(Performed 05/31/2018) Performed for Acute streptococcal pharyngitis * STREP A SCREEN - POINT OF CARE (AMB) STL(Performed 06/27/2017) Performed for Strep throat * STREP A SCREEN - POINT OF CARE (AMB) STL(Performed 06/05/2017) Performed for Pharyngitis, streptococcal, acute * PULSE OXIMETRY - POINT OF CARE (AMB)(Performed 11/21/2016) Performed for Acute bronchitis, unspecified organism * STREP A SCREEN - POINT OF CARE (AMB) STL(Performed 09/27/2016) Performed for Pharyngitis, streptococcal, acute Results * STREP A SCREEN (12/15/2019) Only the most recent of5 resultswithin the time period is included. Strep A Rapid POCT Negative Negative Strep A Internal Control Present Lot # [id number] Expiration Date 06/17/2021 Throat ENTIRE THROAT (SURFACE REGION OF NECK) / Unknown 12/15/2019 Katie Cueva LITHOGRAPHIC PRINTING MACHINIST-PUBLIC HEALTH TECHNICIAN LAB - PO INT OF CARE ORDERABLES * INFLUENZA A+B - POINT OF CARE (AMB) (12/15/2019) Influenza A Antigen Rapid Negative Negative Influenza B Antigen Rapid Negative Negative Influenza Internal Control present NEGATIVE - POSITIVE Influenza Lot Number [id number] Influenza Expiration Date 09/18/2021 Other NASOPHARYNGEAL SWAB / Unknown 12/15/2019 Katie Abby Cueva APRN-PUBLIC HEALTH TECHNICIAN LAB - PO INT OF CARE ORDERABLES * PULSE OXIMETRY - POINT OF CARE (AMB) (11/21/2016) Oximetry POCT 99% 0 - 100 % QC Verified Yes Blood BLOOD SPECIMEN / Unknown 11/21/2016 Rosenda Groves APRN-PUBLIC HEALTH TECHNICIAN LAB - POINT OF C ARE ORDERABLES Care Teams Detail Assembler Relationship Specialty Start Date End Date Sheryl Cramer MD [address] [place], [place] [id number] PCP - General 04/21/22
== END 2024-11-28 09:38 | disposition home or self-care (01) ==
LOC: ANHCARD 09:39
PROVIDERS: PCP Family Medicine; Visit Provider Student in an Organized Health Care Education/Training Program
DX: R01.1 Cardiac murmur, unspecified (principal); I08.3 Combined rheumatic disorders of mitral, aortic and tricuspid valves
CPT/HCPCS: 93306

== ENCOUNTER 2025-03-15 15:11 | Outpatient (CLI) | payer OTHER, SELFPAY ==
--- NOTE | ~2025-03-15 | CT_ITS ---
CT Scan of the Chest without Contrast: Clinical Indication: Pulmonary hypertension Technique: Contiguous sections were acquired throughout the chest without intravenous contrast. Dose reduction technique was used on this scan by utilizing automated exposure control and iterative recon struction technique. The dose-length product (DLP) was 345.94 mGy-cm. Findings: There is no evidence of any significant mediastinal, hilar or axillary lymphadenopathy. Ascending aor ta measures 4.3 cm in diameter. There is no evidence of pleural or pericardial effusion. The lungs are clear. No pulmonary nodules or infiltrates are noted. Images through the upper abdomen reveal partially imaged large calcified gallstone. 1.9 cm left adren al nodule is indeterminate by Hounsfield criteria this exam. Impression: Clear lungs. 4.3 cm ascending aortic aneurysm. 1.9 cm indeterminate left adrenal nodule. Follow-up nonemergent MR should be considered to assess for adenoma. Cholelithiasis. Reviewed, dictated and finalized at [facility]. Impression: Clear lungs. 4.3 cm ascending aortic aneurysm. 1.9 cm indeterminate left adrenal nodule. Follow-up nonemergent MR should be co nsidered to assess for adenoma. Cholelithiasis.
== END 2025-03-15 15:12 | disposition home or self-care (01) ==
LOC: MICIMG 15:12
PROVIDERS: PCP Family Medicine; Visit Provider Family Medicine
DX: I27.20 Pulmonary hypertension, unspecified (principal); K80.20 Calculus of gallbladder without cholecystitis without obstruction; I71.20 Thoracic aortic aneurysm, without rupture, unspecified; D35.02 Benign neoplasm of left adrenal gland
CPT/HCPCS: 71250